=== PATIENT | male | born 1980 | race African-American/Black ===

== ENCOUNTER 2019-10-06 22:53 | Emergency (ER) | payer OTHER ==
[2019-10-06] MEDS ORDERED: DIPH/PERTUSS(ACELL)/TETANUS VAC/PF 0.5 ML SYR (>=10YO) IM ONE (23:35)
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
[2019-10-07 00:28] VITALS: BP 126/72
== END 2019-10-07 00:20 | disposition home or self-care (01) ==
LOC: ER 22:53
DX: S01.512A Laceration without foreign body of oral cavity, initial encounter (principal); V49.50XA Passenger injured in collision with unspecified motor vehicles in traffic accident, initial encounter; Z23 Encounter for immunization; Z88.8 Allergy status to other drugs, medicaments and biological substances
CPT/HCPCS: 90471; 90715; 99282